=== PATIENT | male | born 1965 | race Caucasian/White ===

== ENCOUNTER → 2024-02-23 12:49 | Outpatient (REF) | payer BC, SELFPAY | LOC: MRI 3T 12:49 | PROVIDERS: ATTENDING PHYSICIAN Urology; FAMILY PHYSICIAN Physician Assistant Medical | DX: Z12.5 Encounter for screening for malignant neoplasm of prostate (principal) | CPT/HCPCS: 72197; A9575 ==

== ENCOUNTER → 2024-08-02 14:47 | Outpatient (REF) | payer BC, SELFPAY ==
[2024-08-06 05:44] LABS: HPV, High Risk Detected; HPV, High Risk Source Anal
== END ==
LOC: CLAB 14:47
PROVIDERS: ATTENDING PHYSICIAN Surgery
DX: Z72.52 High risk homosexual behavior (principal)
CPT/HCPCS: 87624; 88112

== ENCOUNTER → 2024-09-10 17:32 | Outpatient (REF) | payer BC, SELFPAY | LOC: CLAB 17:32 | PROVIDERS: ATTENDING PHYSICIAN Surgery | DX: Z72.52 High risk homosexual behavior (principal) | CPT/HCPCS: 88305 ==